=== PATIENT | male | born 1975 | race Caucasian/White ===

== ENCOUNTER 2025-02-21 20:09 | Emergency (ER) | payer OTHER ==
[~2025-02-21] VITALS: Ht 177.8 cm; Wt 86.2 kg
[2025-02-21] MEDS ORDERED: ONDANSETRON 4 MG/2 ML VIAL ONE (21:51)
[2025-02-21] MEDS ORDERED: PIPERACILLIN/TAZOBACTAM/D5W 50 ML IV ONE (21:52)
[2025-02-21] MEDS ORDERED: HYDROMORPHONE 1 MG/1 ML DISP.SYRIN ONE (21:52)
[2025-02-21] MEDS: PIPERACILLIN SODIUM/TAZOBACTAM 3.375 G in IV DEXTROSE 5% 50 ML IV ONE (21:53)
[2025-02-21] MEDS: ONDANSETRON 4 MG/2 ML VIAL IV ONE (21:53)
[2025-02-21] MEDS: HYDROMORPHONE 1 MG/1 ML DISP.SYRIN IV ONE (21:54)
[2025-02-21 22:07] LABS: PLATELET COUNT (AUTO) 233 K/uL (152-348); RED BLOOD CELL COUNT(AUTO) 4.61 MIL/uL (4.06-5.63); RED CELL DISTRIBUTION WIDTH 13.5 % (12.1-16.2); WHITE BLOOD COUNT (AUTO) 14.4 K/uL (3.6-10.2)
[2025-02-21 22:12] LABS: CREATININE 0.6 mg/dL (0.6-1.3); SODIUM SERUM 142 mmol/L (136-145); UREA NITROGEN, BLOOD 13 mg/dL (7-18)
[2025-02-21 22:18] LABS: ASPARTATE AMINOTRANSFERASE 10 U/L (15-37); TOTAL PROTEIN, SERUM 6.6 g/dL (6.4-8.2)
[2025-02-21] MEDS ORDERED: IOHEXOL 300MG/ML 100 ML INFUS..BTL ONE (22:26)
[2025-02-21] MEDS ORDERED: SWABABLE VALVE TRANSFER SET EA MC ONE (22:26)
[2025-02-21] MEDS ORDERED: IV NORMAL SALINE 250 ML IV ONE (22:26)
[2025-02-22] MEDS ORDERED: SODIUM BICARBONATE 4.2 % (NEUT) 5 ML VIAL ONE (00:07)
[2025-02-22] MEDS ORDERED: LIDOCAINE 1%-EPI 1:100,000 20 ML VIAL ONE (00:07)
[2025-02-22] MEDS ORDERED: AMOX-430 PO (00:40)
[2025-02-22] MEDS ORDERED: HYDR-3980 PO (00:40)
[2025-02-22] MEDS ORDERED: ONDA4TAB11 PO (00:40)
[2025-02-22 00:42] VITALS: BP 131/69
[2025-02-22 00:45] VITALS: BP 134/66; TEMP 98.2; O2SAT 99
[2025-02-22] MEDS: LIDOCAINE 1%-EPI 1:100,000 20 ML VIAL IJ ONE (00:49)
[2025-02-22] MEDS: SODIUM BICARBONATE 4.2 % (NEUT) 5 ML VIAL TP ONE (00:50)
== END 2025-02-22 00:55 | disposition home or self-care (01) ==
LOC: ER 20:24
DX: L02.31 Cutaneous abscess of buttock (principal); F17.210 Nicotine dependence, cigarettes, uncomplicated; K76.0 Fatty (change of) liver, not elsewhere classified
CPT/HCPCS: 99285; 74177; 96365; 10060; 96375; 80053; 85025; 85610; 36415; J2405; Q9967; J2543; J1171; J3490 ×2; A4606; A4663